=== PATIENT | female | born 1940 | race Caucasian/White ===

== ENCOUNTER → 2017-01-14 | Outpatient (CLI) | payer MEDICARE, OTHER | END | disposition home or self-care (01) | LOC: GMAM 11:25 | PROVIDERS: ATTEND Family Medicine | DX: E53.8 Deficiency of other specified B group vitamins (principal) ==

== ENCOUNTER → 2018-07-01 | Outpatient (CLI) | payer MEDICARE, OTHER | LOC: GMAM 10:30 | PROVIDERS: ATTEND Family Medicine | DX: E53.8 Deficiency of other specified B group vitamins (principal) ==

== ENCOUNTER → 2018-07-11 | Outpatient (CLI) | payer MEDICARE, OTHER ==
--- NOTE | 2018-07-12 09:19 | MAM ---
EXAM DESCRIPTION: 3D Screening BILATERAL : Digital Mammography. CLINICAL HISTORY: 78 years Female SCREENING . No personal history or family history of breast cancer. Childbirth. Postmenopausal. No HRT. Lifetime risk of developing breast cancer (Tyrer-Cuzick model) is 2.8 %. COMPARISON: 2-D digital screening bilateral study 08/03/2016. TECHNIQUE: Bilateral CC and MLO projection full-field images, Digital tomosynthesis mammographic technique. Bilateral digital 2-D full-field MLO images. CAD not utilized. FINDINGS: The breast parenchymal density pattern is: Scattered areas of fibroglandular density. No skin thickening or nipple retraction. Bilateral axillary lymph nodes. Bilateral solitary microcalcifications. Skin calcifications on the medial right breast posteriorly. Secretory calcifications right breast. No new focal, stellate mass or density, focal asymmetry , and no suspicious microcalcifications bilaterally. Stable mammograms compared to prior study. Taking into account, differences in mammographic technique. IMPRESSION: Benign exam. BIRAD CATEGORY: 2 BENIGN FINDINGS. RECOMMENDATIONS: FOLLOW UP: Routine digital bilateral screening, one year interval from July 2018. Written communication explaining the IMPRESSION and follow-up, will be mailed to the patient and referring health care provider. According to the [employer], yearly mammograms are recommended starting at age 40 and continuing as long as a woman is in good health. Any breast change noted on a breast self-exam should be reported promptly to the patient's healthcare provider. Breast MRI is recommended for women with an approximately 20-25% or greater lifetime risk of breast cancer, including women with a strong family history of breast or ovarian cancer and women who have been treated for Hodgkin's disease. A negative mammographic report should not delay tissue diagnosis in patients with significant clinical history or physical findings. Extremely dense breast tissue limits the sensitivity of digital mammography. Electronically signed by: Danilo Alonzo MD 07/12/2018 9:18 AM CDT
== END ==
LOC: MAMMO 11:00
PROVIDERS: ATTEND Family Medicine
DX: Z12.31 Encounter for screening mammogram for malignant neoplasm of breast (principal)

== ENCOUNTER → 2018-09-12 | Outpatient (CLI) | payer MEDICARE, OTHER ==
--- NOTE | 2018-09-12 08:54 | US ---
EXAM DESCRIPTION: Gall Bladder CLINICAL HISTORY: ABDOMINAL PAIN COMPARISON: None Available. TECHNIQUE: Right upper quadrant ultrasound FINDINGS: Pancreas: Visualized portions of the pancreas are unremarkable. Bowel gas obscures some areas. Aorta/inferior vena cava: No aortic aneurysm. Normal inferior vena cava. Liver: The liver is homogeneous in texture with normal echogenicity of the hepatic parenchyma. No focal liver lesion or intrahepatic bile duct dilatation. No liver surface irregularity. Normal appearance of the portal vein and hepatic veins. Gallbladder: Gallbladder appears normal with no intraluminal stones or wall thickening. Common bile duct: Normal caliber measuring 2.6 mm. Right kidney: Renal length is 11.4 cm. There is mild cortical thinning but normal echogenicity. No hydronephrosis is seen. No renal mass or shadowing calculus. Small cyst at the upper pole the right kidney measures 1.3 cm. IMPRESSION: No diagnostic abnormality is identified on sonographic examination of the right upper quadrant. Electronically signed by: Christian Prince MD 09/12/2018 8:53 AM [facility]
== END ==
LOC: US 08:30
PROVIDERS: ATTEND Family Medicine
DX: R10.11 Right upper quadrant pain (principal)

== ENCOUNTER → 2018-10-10 | Outpatient (CLI) | payer MEDICARE, OTHER | LOC: GMAM 10:53 | PROVIDERS: ATTEND Family Medicine | DX: E53.8 Deficiency of other specified B group vitamins (principal) ==

== ENCOUNTER 2018-12-27 15:43 | Emergency (ER) | payer MEDICARE, OTHER ==
[2018-12-27 16:16] VITALS: O2SAT 97
--- NOTE | 2018-12-27 16:36 | ED.PDOC ---
History of Present Illness - General Chief Complaint: Abdominal Pain Stated Complaint: Abdominal pain Time Seen by Provider: 12/27/18 16:22 Information Source: patient Exam Limitations: no limitations - History of Present Illness Initial Comments: Mel Tran 78 y/o female came to ER with dull constant abdominal pain since Wednesday,her last BM was Wednesday took MOM and dulcolax but unable to move bowels ,had also been feeling nauseated .No vomiting. Abdominal Pain Onset Location: generalized abdomen Pain Radiation: back Quality: moderate, aching, steady Timing/Duration: other - 3 days Improving Factors: nothing Worsening Factors: nothing Associated Symptoms: other - loss of appetite Review of Systems - Review of Systems Constitutional: States: no symptoms reported EENTM: States: no symptoms reported Respiratory: States: no symptoms reported Cardiology: States: no symptoms reported Gastrointestinal/Abdominal: States: see HPI Genitourinary: States: no symptoms reported Musculoskeletal: States: no symptoms reported All other Systems: Reviewed and Negative, No Change from Baseline Past Medical History (General) - Patient Medical History Hx Seizures: No Hx Stroke: No Hx Dementia: No Hx Asthma: No Hx of COPD: No Hx Cardiac Disorders: No Hx Congestive Heart Failure: No Hx Pacemaker: No Hx Hypertension: Yes Hx Thyroid Disease: No Hx Diabetes: Yes Hx Gastroesophageal Reflux: No Hx Renal Disease: No Hx Cancer: No Hx of HIV: No Hx Hepatitis C: No Hx MRSA: No Surgical History: appendectomy, other - c- section,bladder tuck,wrist,shoulder,colonoscopy - Social History Hx Tobacco Use: No Hx Alcohol Use: No Hx Substance Use: No Hx Substance Use Treatment: No Hx Depression: No - Female History Patient is a Female of Child Bearing Age (10 -59 yrs old): No - Triage Comment ED Triage Comment: Constipation since Wednesday, not eaten since wednesday and OTC meds did not help with constipation. The abdominal pain moved from one area to another in the abdomen and back. Family Medical History - Family History Mother Family History: Unknown Living Status: Unknown Hx Family Diabetes: Yes - parents Physical Exam - Physical Exam General Appearance: Alert, Comfortable, No apparent distress Eyes, Ears, Nose, Throat Exam: PERRL/EOMI, normal ENT inspection Neck: non-tender, full range of motion, supple, normal inspection Respiratory: chest non-tender, lungs clear, normal breath sounds, no respiratory distress Cardiovascular/Chest: normal peripheral pulses, regular rate, rhythm, no murmur Peripheral Pulses: No deficit Gastrointestinal/Abdominal: non tender, soft Back Exam: no CVA tenderness, no vertebral tenderness Extremity: no pedal edema, no calf tenderness Neurologic: alert, oriented x 3 Skin Exam: other - no rashes Progress - Progress Progress: 12/27/18 16:39 Vital Signs - 8 hr 12/27/18 16:03 Temperature 98.6 F Pulse Rate [ 108 H Left Radial] Respiratory 18 Rate Blood Pressure 143/89 [Right Arm] O2 Sat by Pulse 97 Oximetry - Results/Orders Results/Orders: Laboratory Tests 12/27/18 15:51 WBC 10.8 RBC 4.58 Hgb 12.4 Hct 38.0 MCV 83.1 MCH 27.1 MCHC 32.6 L RDW 17.2 H Plt Count 357 MPV 7.7 Absolute Neuts (auto) 7.70 H Absolute Lymphs (auto) 1.60 Absolute Monos (auto) 1.40 H Absolute Eos (auto) 0.00 Absolute Basos (auto) 0.10 Neutrophils % 71.2 Lymphocytes % 14.8 L Monocytes % 13.1 H Eosinophils % 0.1 L Basophils % 0.8 PT 11.0 H INR 1.10 PTT (SP) 26.8 Sodium 135 Potassium 4.2 Chloride 99 L Carbon Dioxide 20 L Anion Gap 20.2 H BUN 17 Creatinine 0.58 L BUN/Creatinine Ratio 29.3 H Random Glucose 144 H Serum Osmolality 274.2 L Calcium 9.5 Magnesium 1.8 Total Bilirubin 1.0 Direct Bilirubin 0.2 Indirect Bilirubin 0.8 AST 28 ALT 32 Alkaline Phosphatase 144 H Creatine Kinase 52 CK-MB (CK-2) 1.2 CK-MB (CK-2) % 2.31 Troponin I < 0.02 Serum Total Protein 8.9 H Albumin 4.0 Discuss all test results with patient - EKG/XRAY/CT XRAY: chest - basilar atelectasis,hiatal hernia CT Ordered: Yes - paraesophageal hernia with concentric wall thickening;compressed fracture Departure - Departure Clinical Impression: Paraesophageal hernia, Constipation by delayed colonic transit Abdominal pain Qualifiers: Abdominal location: lower abdomen, unspecified Qualified Code(s): R10.30 - Lower abdominal pain, unspecified Compression fracture of thoracic spine, non-traumatic Qualifiers: Encounter type: initial encounter Thoracic vertebra fracture level: T11 Qualified Code(s): M48.54XA - Collapsed vertebra, not elsewhere classified, thoracic region, initial encounter for fracture Time of Disposition: 19:12 Disposition: Discharge to Home or Self Care Condition: Fair Departure Forms: ED Discharge - Pt. Copy, Patient Portal Self Enrollment Referrals: Edwin Hurley MD [Primary Care Provider] - 1-2 Weeks Prescriptions: Acetaminophen W/ Codeine [Tylenol w/Codeine 300-30 mg] 1 tab PO Q6HRS PRN #30 tab PRN Reason: Pain Home Medications: Ambulatory Orders Acetaminophen W/ Codeine [Tylenol w/Codeine 300-30 mg] 1 tab PO Q6HRS PRN #30 tab 12/27/18 Additional Instructions: Follow up with primary Md in AM 28 Dec 2018;Return to ER if symptoms worsens
[2018-12-27] MEDS ORDERED: PROCHLORPERAZINE INJ 10 MG/2 ML VIAL IV ONE (16:41)
[2018-12-27] MEDS ORDERED: HYDROmorphone HCL INJ 2 MG/ML VIAL IV ONE (16:41)
--- NOTE | 2018-12-27 17:23 | CT ---
EXAM DESCRIPTION: Abdoment/Pelvis w/o Contrast CLINICAL HISTORY: 78 years Female, pain COMPARISON: Gallbladder ultrasound dated September 12, 2018. TECHNIQUE: Contiguous 3 mm axial images were obtained from the lung bases to the level of proximal femora without the administration of intravenous or oral contrast. Sagittal and coronal reconstructions were reviewed. FINDINGS: Imaged lower thorax appears normal. Limited evaluation of the solid organs due to the lack of intravenous contrast. The liver, gallbladder, pancreas and spleen appear normal. Bilateral adrenal adenomas are identified measuring 1.7 cm on the right and 1.6 cm on the left. Both kidneys are symmetric in size and contour with no hydronephrosis or nephrolithiasis or perinephric fluid collections. Large paraesophageal hernia is noted. A few paraesophageal lymph nodes measuring up to 1 cm are identified. The stomach is not well-distended limiting detailed evaluation. The visualized small bowel loops appear normal. Large amount of fecal material is noted within the colon, consistent with constipation. The distal descending colon and rectum are not well-distended limiting detailed evaluation. No free intraperitoneal air or fluid. The urinary bladder is mildly distended with no gross abnormality. The uterus and ovaries appear normal. The abdominal aorta demonstrates minimal atherosclerosis. The inferior vena cava is normal in size and caliber. No abnormally enlarged lymph nodes are identified. Moderate degenerative changes are identified throughout the visualized spine. Lucency is identified along the posterior aspect of T11 vertebral body with mild superior endplate compression. Findings are suspicious for acute compression fracture with questionable underlying metastasis. Increased sclerosis is identified and T9 and T10 vertebral bodies which is also suspicious for metastasis. IMPRESSION: 1. Large paraesophageal hernia is identified with circumferential wall thickening. Few paraesophageal lymph nodes measuring up to 1 cm are identified. Upper GI endoscopy is recommended to exclude the possibility of an underlying mass. 2. Constipation. 3. Lucency is noted in the posterior aspect of T11 vertebral body with mild superior endplate compression. Findings are suspicious for acute compression fracture with possible underlying metastasis. 4. Increased sclerosis is noted in T9 and T10 vertebral bodies, also suspicious for metastasis. This exam was performed according to our departmental dose-optimization program, which includes automated exposure control, adjustment of the mA and/or kV according to patient size and/or use of iterative reconstruction technique. Electronically signed by: Golden Squires MD 12/27/2018 5:20 PM [employer]
--- NOTE | 2018-12-27 17:42 | RAD ---
EXAM DESCRIPTION: Chest,1 View CLINICAL HISTORY: nausea COMPARISON: 26 July 2018 TECHNIQUE: AP portable chest FINDINGS: Basilar atelectatic type infiltrate is observed bilaterally. There is evidence of a hiatus hernia. A plate and orthopedic screws are observed in the right shoulder. No pleural fluid is identified. The heart is within range of normal. IMPRESSION: 1. Basilar atelectatic type infiltrate is observed bilaterally. 2. Large height is hernia is observed. Electronically signed by: Jalil Edgar MD 12/27/2018 5:39 PM [facility]
[2018-12-27] MEDS ORDERED: SODIUM CHLORIDE 0.9% 500ML 500 ML IVS ONE (17:44)
[2018-12-27] MEDS ORDERED: HYDROCOD/APAP 7.5/325 (ER DISP) #3 TAB PO ONE (19:13)
[2018-12-27 20:08] VITALS: BP 118/90; TEMP 98.1
== END 2018-12-27 20:08 | disposition home or self-care (01) ==
LOC: ER 15:43
DX: K44.9 Diaphragmatic hernia without obstruction or gangrene (principal); K59.01 Slow transit constipation; M48.54XA Collapsed vertebra, not elsewhere classified, thoracic region, initial encounter for fracture; R10.30 Lower abdominal pain, unspecified; R11.0 Nausea; I10 Essential (primary) hypertension; E11.9 Type 2 diabetes mellitus without complications; Z90.49 Acquired absence of other specified parts of digestive tract
CPT/HCPCS: 36415; 71045; 74176; 80048; 80076; 82550; 82553; 84484; 85025; 85610; 85730; J0780; J1170; J7040

== ENCOUNTER → 2018-12-28 | Outpatient (CLI) | payer MEDICARE, OTHER | LOC: GMAHI 16:57 | PROVIDERS: ATTEND Nurse Practitioner Family | DX: R11.2 Nausea with vomiting, unspecified (principal) ==

== ENCOUNTER → 2019-01-03 | Outpatient (CLI) | payer MEDICARE, OTHER ==
--- NOTE | 2019-01-03 13:35 | CT ---
EXAM DESCRIPTION: Chest w/wo Contrast CLINICAL HISTORY: WEDGE COMPRESSION FRACTURE OF T11-T12 VERTEBRA COMPARISON: CT abdomen pelvis December 27, 2018 TECHNIQUE: Pre and postcontrast CT images of the chest are obtained using standard imaging protocol. This exam was performed according to our departmental dose-optimization program, which includes automated exposure control, adjustment of the mA and/or kV according to patient size and/or use of iterative reconstruction technique . FINDINGS: Images are moderately degraded by patient breathing motion artifact. The heart is enlarged. Mild coronary artery calcifications are partly visualized. Thoracic aorta is unremarkable. Bovine origin of the great vessels from the aortic arch are noted. No pathologically enlarged mediastinal, hilar, or axillary lymphadenopathy is seen. Trace right pleural effusion is seen. Moderate retrocardiac hiatal hernia is seen. Liver is enlarged with heterogeneous decreased attenuation consistent with diffuse fatty infiltration. Bilateral adrenal gland adenomas are again seen measuring 2.2 cm on the right hand 2 cm x 1.3 cm on the left with Hounsfield units less than 5. No further imaging follow-up is recommended. Several lymph nodes in the epigastric region are again seen measuring maximum 9 mm short axis. Please see patient and discussion from previous CT of the abdomen and pelvis. Lungs are mildly hyperinflated. Geographic areas of groundglass attenuation in the lungs are seen bilaterally with areas of interstitial thickening in the lower lobes and right middle lobe. Several pleural-based noncalcified pulmonary nodules are seen measuring less then 5 mm. Ill-defined 5.5 mm pulmonary nodule in the medial left upper lobe image 28 of series 4 is seen. Osseous structures are diffusely osteopenic. Postsurgical changes are seen in the incompletely visualized right humeral head. Diffuse mostly sclerotic changes are seen throughout the T9 and T10 vertebral bodies extending to the posterior elements at T11. Destructive changes of the posterior inferior endplate of T11 is seen. Bone destructive changes and lytic lesion involving the mid to posterior aspect of the T12 vertebral body asymmetric towards the right extending to the right transverse process is seen with loss of the normal posterior cortex. Vertically oriented fracture through the central aspect of the vertebral body is seen with mild anterior wedging of the superior plate and mild concavity of the inferior. At least mild spinal canal stenosis is seen. Sclerotic changes involving the medial right 10th rib are seen. Mild disc degenerative changes and facet arthropathy of the thoracic spine above this level is seen. IMPRESSION: Abnormal appearance of the T10-T12 vertebral bodies concerning for metastatic disease. Atypical presentation of discitis osteomyelitis at T11-12 is also a consideration. Pre and postcontrast MRI of the thoracic spine may be useful. Recommend tissue sampling and biopsy. Lytic lesion and bone destructive changes involving the T12 vertebral body extending to the transverse process contributes to at least mild to moderate spinal canal stenosis and right foraminal encroachment. Pathologic compression fracture deformity at T12 is seen. Areas of groundglass attenuation in the lungs suggesting air trapping and probable sequela of chronic lung disease with mild interstitial scarring or atelectasis in the lower lung mcfadden. Trace right pleural effusion is seen. Several less than 6 mm noncalcified pulmonary nodules are seen. Recommend follow-up CT imaging of the chest in one year to document long-term stability. Moderate retrocardiac hiatal hernia is seen. Other findings as described in body of the report. Electronically signed by: Gabriel Clarke MD 01/03/2019 1:32 PM [facility]
== END ==
LOC: CT 10:30
PROVIDERS: ATTEND Nurse Practitioner Family
DX: K44.9 Diaphragmatic hernia without obstruction or gangrene (principal); K59.01 Slow transit constipation; R11.2 Nausea with vomiting, unspecified; S22.080S Wedge compression fracture of T11-T12 vertebra, sequela; R91.8 Other nonspecific abnormal finding of lung field

== ENCOUNTER 2019-02-09 05:46 | Day surgery (SDC) | payer MEDICARE, OTHER ==
[2019-02-09] MEDS ORDERED: DEXAMETHASONE INJ 10 MG/ML VIAL ONE (07:00)
[2019-02-09] MEDS ORDERED: PROPOFOL 200 MG/20 ML VIAL IV ONE (07:00)
[2019-02-09] MEDS ORDERED: LACTATED RINGERS 1,000 ML ONE (09:04)
[2019-02-09] MEDS ORDERED: SODIUM CHL 0.9% 100ML MINI-BAG 100 ML IVPB ONE (09:04)
[2019-02-09] MEDS ORDERED: ceFAZolin SODIUM 1 GM VIAL ONE (09:05)
--- NOTE | 2019-02-09 09:42 | RAD ---
EXAM DESCRIPTION: Chest,2 Views CLINICAL HISTORY: PREOP COMPARISON: None TECHNIQUE: PA/lateral FINDINGS: Orthopedic hardware in the right proximal humerus. Density behind the heart consistent with a small to moderate hiatal hernia. Heart size is normal with normal pulmonary vascularity. No pleural effusion or pneumothorax. Linear scarring or discoid atelectasis in the perihilar regions. Right hemidiaphragm is elevated. Lungs are otherwise clear with no consolidating infiltrate. Lateral view shows intact sternum and T-spine. IMPRESSION: No acute process is identified in the chest. Electronically signed by: Christian Prince MD 02/09/2019 9:39 AM CDT
[2019-02-09] MEDS ORDERED: LIDOCAINE 1% 50 ML VIAL INJ ONE (10:15)
[2019-02-09] MEDS ORDERED: SODIUM BICARBONATE VIAL 50 MEQ/50 ML VIAL ONE (10:15)
[2019-02-09] MEDS ORDERED: SODIUM CHLORIDE 0.9% 50 ML VIAL ONE (10:16)
[2019-02-09] MEDS ORDERED: HEPARIN SODIUM 100 U/ML 5 ML SYG IV ONE (10:16)
[2019-02-09] MEDS ORDERED: MIDAZOLAM INJ 2 MG/2 ML VIAL ONE (10:33)
[2019-02-09] MEDS ORDERED: fentaNYL CITRATE INJ 50 MCG/ML AMP ONE (10:33)
[2019-02-09] MEDS ORDERED: KETAMINE HCL 100 MG/ML VIAL ONE (10:34)
--- NOTE | 2019-02-09 12:03 | RAD ---
EXAM DESCRIPTION: Chest,1 View CLINICAL HISTORY: PORT PLACEMENT VERIFICATION COMPARISON: Chest radiograph obtained earlier same day FINDINGS: There has been interval placement of a right-sided Mediport device without apparent complication. The tip of the portacatheter projects over the SVC near the cavoatrial junction. The cardiomediastinal silhouette is unremarkable. There is no airspace consolidation or pleural effusion. The bronchovascular markings are within normal limits, and the lungs are not hyperinflated. There is no pneumothorax or acute fracture. Postoperative changes are noted in the right shoulder. IMPRESSION: Right-sided Mediport device in place as detailed above without apparent complication. Electronically signed by: Jakub Wallace MD 02/09/2019 12:00 PM CDT
[2019-02-09 12:35] VITALS: BP 126/69; TEMP 97; O2SAT 97
--- NOTE | 2019-02-09 15:49 | OP ---
DATE OF PROCEDURE: 02/09/19 PREOPERATIVE DIAGNOSIS: 1. Metastatic gastric carcinoma. POSTOPERATIVE DIAGNOSIS: 1. Metastatic gastric carcinoma. SURGICAL PROCEDURE: 1. Insertion right subclavian venous access port. SURGEON: Gerson Dodd M.D. TIGHT ROPE WALKER: None. ANESTHESIA: Local infiltration of 1% Lidocaine and general room air anesthesia by Anesthesia. INDICATION FOR SURGERY: The patient is a 78 year-old female who has had some difficulty with swallowing and was found to have a carcinoma of the stomach. 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 She has recently undergone radiation therapy and is taking Medrol for that. She has an elevated blood sugar but has been brought to the Operating Room for insertion of a right subclavian venous access port using fluoroscopy for insertion of the guidewire. FINDINGS AT TIME OF PROCEDURE: The guidewire and then the catheter were identified in the superior vena cava. Post procedure chest x-ray is pending to rule out pneumothorax. DESCRIPTION OF PROCEDURE: After the patient was brought to the Surgical Suite and placed in the supine position, she was pepped on both sides of the chest and draped. A surgical time out was taken. At this point the infraclavicular area on the right was infiltrated with local anesthesia and taken several passes the 22 gauge needle was introduced into below the clavicle. Venous blood was aspirated. At this point the 18 gauge thin-walled needle was introduced in the same direction with 1 stick and blood was aspirated. The guidewire was introduced and advanced to approximately 30 cm with no ectopy. At this point a towel was placed over the field and the fluoroscopy unit was used to identify the guidewire in the superior vena cava. We then removed the towel. A port pocket was formed using local anesthesia and a sharp knife, and the blunt dissection with electrocautery. The port was introduced into the port pocket and sutured in place with #3-0 Prolene simple sutures. The catheter is tunneled from the port pocket to the insertion site and then cut to the appropriate length. The dilator introducer is introduced over the guidewire. The guidewire and introducer were removed. The catheter was introduced through the introducer and the introducer was removed in the usual manner. When this was done, the port is accessed with a Restrepo needle. Blood is easily aspirated. It was flushed with Heparinized saline and then was hep-locked. When this was done, it is de-accessed. The subcutaneous tissue of the port pocket is reapproximated with interrupted #3-0 Vicryl sutures. The skin edges are then approximated with #4-0 Vicryl subcuticular stitches with Benzoin and Steri-Strips. Sterile dressings were applied. The patient tolerated the procedure well. Estimated blood loss was approximately 25 mL. The patient was returned to the Recovery Room in stable condition. I ordered a stat portable chest x-ray. #[id number] [facility]
--- NOTE | 2019-02-10 08:42 | RAD ---
EXAM: FL LESS THAN 1 HOUR DATE: 02/09/2019 Ordering provider: Gerson Dodd MD CLINICAL INDICATION: PORT PLACEMENT COMPARISON: None. FINDINGS: 1 intraoperative fluoroscopic image submitted for review. Image demonstrates placement of a right-sided port with tip extending to the distal SVC. Please refer to operative report for details. Fluoroscopy time: 4.3 seconds. IMPRESSION: Intraoperative fluoroscopy. Electronically signed by: Erlin Laird MD 02/10/2019 8:39 AM CDT
== END 2019-02-09 12:30 | disposition home or self-care (01) ==
LOC: AMB 05:46
PROVIDERS: ATTEND Surgery
DX: C78.89 Secondary malignant neoplasm of other digestive organs (principal); C78.7 Secondary malignant neoplasm of liver and intrahepatic bile duct; C78.00 Secondary malignant neoplasm of unspecified lung; C79.51 Secondary malignant neoplasm of bone; E11.9 Type 2 diabetes mellitus without complications; I10 Essential (primary) hypertension; Z88.5 Allergy status to narcotic agent; Z79.84 Long term (current) use of oral hypoglycemic drugs; Z79.82 Long term (current) use of aspirin; Z79.899 Other long term (current) drug therapy
CPT/HCPCS: 00532; 36415; 36416; 36561; 71045; 71046; 76000; 80048; 81001; 82948; 85025; 93005; A4216; C1788; J0690; J1100; J1642; J2250; J3010; J3490; J7050; J7120

== ENCOUNTER → 2019-02-24 | Outpatient (CLI) | payer MEDICARE, OTHER | LOC: LAB.O 15:13 | PROVIDERS: ATTEND Internal Medicine Hematology & Oncology | DX: C15.5 Malignant neoplasm of lower third of esophagus (principal); R93.89 Abnormal findings on diagnostic imaging of other specified body structures; M89.9 Disorder of bone, unspecified ==

== ENCOUNTER → 2019-05-08 | Outpatient (CLI) | payer MEDICARE, OTHER ==
--- NOTE | 2019-05-08 11:26 | CT ---
EXAM DESCRIPTION: Chest w/Contrast (accession [id number]), Abdomen w/Contrast (accession [id number]) CLINICAL HISTORY: 78 years Female, MALIGNANT NEOPLASM OF LOWER THIRD OF ESOPHAGUS COMPARISON: CT abdomen and pelvis dated 12/27/2018. TECHNIQUE: Contiguous thin section axial images through the chest and abdomen were obtained after the administration of intravenous contrast. Sagittal and coronal reconstructions were reviewed. FINDINGS: 5 mm hypodense lesion is identified in the right thyroid lobe. The visualized supraclavicular regions appear grossly unremarkable. No evidence of abnormally enlarged mediastinal, hilar or axillary lymphadenopathy. Trachea is midline and the central tracheobronchial tree is patent. Moderate to large right and moderate-sized left pleural effusions are identified. Consolidative airspace opacities are noted in the bilateral lower lobes, lingula and right middle lobe. Multiple noncalcified soft tissue nodules are identified in the aerated portions of the lungs the largest measuring 7 mm in the right upper lobe on image #[id number]. These are suspicious for metastasis. The heart is normal in size with no pericardial effusion. The visualized aorta is nonaneurysmal with mild atherosclerosis. The superior vena cava is normal in size and caliber. Mild coronary artery atherosclerosis. The esophagus appears normal throughout its visualized length. Multiple hypodense lesions are identified throughout the liver the largest measuring 3 cm in the dome in hepatic segment 7/8. Findings are suspicious for metastasis. The gallbladder is adequately distended with no gross abnormality. The pancreas, spleen appear normal. Indeterminate bilateral adrenal nodules measuring 1.7 cm on each side are identified. 1.2 cm hypodense lesion is noted in the upper pole of the right kidney. No hydronephrosis or perinephric fluid collections bilaterally. Moderate-sized hiatal hernia is noted. The stomach is not well-distended limiting detailed evaluation. The visualized small and large bowel loops demonstrate no gross abnormality. Mild atherosclerotic disease is noted in the visualized aorta. The inferior vena cava is normal in size and caliber. No abnormally enlarged lymph nodes are identified in the retroperitoneum. Multiple peritoneal soft tissue nodules are identified in the mid and right hemiabdomen, concerning for metastasis. Mixed lytic and sclerosis is identified along the inferior endplate of T8 vertebral body, entire T9 and T10 vertebral bodies with no loss of height. The T11 vertebral body demonstrates mixed lytic and sclerotic changes with cortical disruption of the endplates and compression deformity of approximately 40% loss of height. Findings are consistent with metastasis. Ill-defined area of sclerosis is also identified in L2 vertebral body and along the endplates of L4 and L5 vertebral bodies. IMPRESSION: 1. Moderate to large right and moderate left pleural effusions are identified with consolidative airspace opacities in the bilateral lower lobes, lingula and right middle lobe. 2. Multiple noncalcified soft tissue nodules are identified throughout both lungs the largest measuring 7 mm in the right upper lobe. Findings are suspicious for metastasis. 3. Multiple hypodense lesions are identified throughout the liver the largest measuring 3 cm in the dome. Findings are suspicious for metastasis. 4. Multiple peritoneal deposits are also identified in the midabdomen and right hemiabdomen, concerning for metastasis. 5. Indeterminate bilateral adrenal nodules are also suspicious for metastasis. 6. Mixed lytic and sclerotic lesions are identified in T8, T9, T10, T11 and L2 vertebral bodies, most likely representing metastasis. There is evidence of cortical disruption of the endplates of T11 vertebral body with compression deformity of approximately 40% loss of height. This exam was performed according to our departmental dose-optimization program, which includes automated exposure control, adjustment of the mA and/or kV according to patient size and/or use of iterative reconstruction technique. Electronically signed by: Michaela Bajwa MD 05/08/2019 11:24 AM CDT
== END ==
LOC: CT 09:00
PROVIDERS: ATTEND Internal Medicine Hematology & Oncology
DX: C15.5 Malignant neoplasm of lower third of esophagus (principal); R91.8 Other nonspecific abnormal finding of lung field; J90 Pleural effusion, not elsewhere classified; K76.9 Liver disease, unspecified; K66.8 Other specified disorders of peritoneum; M51.84 Other intervertebral disc disorders, thoracic region; M51.86 Other intervertebral disc disorders, lumbar region; M89.9 Disorder of bone, unspecified

== ENCOUNTER → 2019-05-09 | Outpatient (CLI) | payer MEDICARE, OTHER ==
--- NOTE | 2019-05-10 15:21 | NM ---
EXAM DESCRIPTION: Bone Scan, Whole Body: Nuclear Medicine CLINICAL HISTORY: 78 years Female MALIGNANT NEOPLASM OF ESOPHAGUS spine lesions on PET CT scan. COMPARISON: PET CT scan 01/24/2019. CT scan chest abdomen and pelvis 05/08/2019. TECHNIQUE: Patient injected with 26.6 mCi of technetium 99M MDP IV. Delayed gamma camera images from various planes were obtained 3 hr after injection. FINDINGS: Abnormal increased activity in the right L4 vertebral body, somewhat circumscribed. This lesion showed increased uptake on the PET scan and sclerosis on the abdominal CT scan. Focal increased activity in the medial aspect of the left anterior iliac crest lateral to the upper SI joint, also showing increased uptake on the PET scan. Focal abnormal increased activity in the right T12 vertebral body more posterior than anterior which can be seen as a focal sclerotic lesion in the right L1 vertebral body on the recent CT scan, with increased uptake on PET scan. Normal increased activity in the right T11 vertebral body more posterior than anterior corresponding to increased uptake on the PET scan and mixed sclerosis on the CT, more on the right. The Tc 99m activity in the T11 vertebral body is decreased compared to the uptake on the PET scan. Diffuse abnormal increased activity in the T10 and T9 vertebral bodies corresponding to diffuse sclerosis in the T10 and T9 vertebral bodies on the CT scan and diffuse uptake in the vertebral bodies on the PET scan. Abnormal activity on the bone scan in the bilateral T10 pedicles corresponds to sclerosis seen on the abdominal CT scan. Activity in the proximal right posterior ninth rib corresponds to sclerosis on the CT scan and uptake on the PET scan. Increased Tech 99m MDP activity in the bilateral medial posterior 10th ribs more right than left, seen as sclerosis on the CT scan, and increased uptake on PET scan. Physiologic activity in the kidneys, urinary bladder. Injection site with minimal infiltration left elbow. Minimal activity in the region of the right knee most likely related to arthrosis. IMPRESSION: 1. Abnormal radiopharmaceutical activity T9-T10, T11, L1 and L4 in the spine. Also focal abnormal activity in the left posterior medial iliac crest abutting the SI joint and medial posterior ribs adjacent to the infiltrated vertebra described above. This is interpreted to be related to metastatic disease, and is similar to uptake on the PET CT scan in December 2018. Also correlates with CT scans performed on May 08, 2019. Electronically signed by: Danilo Alonzo MD 05/10/2019 3:19 PM CDT
== END ==
LOC: NM 09:00
PROVIDERS: ATTEND Internal Medicine Hematology & Oncology
DX: C15.5 Malignant neoplasm of lower third of esophagus (principal); M89.9 Disorder of bone, unspecified; R93.89 Abnormal findings on diagnostic imaging of other specified body structures